=== PATIENT | female | born 1990 | race Caucasian/White ===

== ENCOUNTER 2021-07-18 08:02 | Outpatient (CLI) | payer OTHER ==
--- NOTE | 2021-07-18 09:53 | XRAY Report ---
PROCEDURE: Ankle 2 View LT INDICATIONS: ROLLED LEFT ANKLE / PAIN AND SWELLING TECHNIQUE: 2 views of the ankle were acquired. COMPARISON: None FINDINGS: No fracture identified. There is lateral soft tissue swelling. Anatomic alignment. Scattered subchond ral sclerosis and spurring. IMPRESSION: Lateral soft tissue swelling. No fracture identified. If the patient's pain or other symptoms persist , consider further evaluation with MRI. Reviewed by: Mark Ortega MD on 07/18/2021 9:51 AM PST Approved by: Mark Ortega MD on 07/18/2021 9:51 AM PST Station ID: [id number]
== END 2021-07-18 23:59 | disposition home or self-care (01) ==
LOC: DI.N 08:02
PROVIDERS: ATTEND Family Medicine
DX: M25.572 Pain in left ankle and joints of left foot (principal); R93.6 Abnormal findings on diagnostic imaging of limbs; R93.89 Abnormal findings on diagnostic imaging of other specified body structures